=== PATIENT | female | born 1970 ===

== ENCOUNTER → 2019-11-07 | Outpatient (CLI) | payer OTHER ==
[~2019-11-07] MED LIST: TYLENOL-CODEINE1 TAB PO
== END | disposition home or self-care (01) ==
LOC: MRI 13:59
PROVIDERS: ATTEND Orthopaedic Surgery
DX: S34.5XXA Injury of lumbar, sacral and pelvic sympathetic nerves, initial encounter (principal); M51.26 Other intervertebral disc displacement, lumbar region; M81.0 Age-related osteoporosis without current pathological fracture
CPT/HCPCS: 72148